=== PATIENT | female | born 1980 | race Caucasian/White ===

== ENCOUNTER 2017-01-01 23:22 | Emergency (ER) | payer MEDICAID ==
[~2017-01-01] VITALS: Ht 157.5 cm; Wt 63.5 kg
[2017-01-02 01:08] VITALS: BP 126/75
== END 2017-01-02 01:38 | disposition home or self-care (01) ==
LOC: ER 23:22
DX: H10.9 Unspecified conjunctivitis (principal); H92.03 Otalgia, bilateral; J02.9 Acute pharyngitis, unspecified
CPT/HCPCS: A4606; Z7610